=== PATIENT | male | born 2000 | race Caucasian/White ===

== ENCOUNTER 2020-10-21 18:40 | Emergency (ER) | payer BC ==
[2020-10-21] MEDS ORDERED: Dexamethasone 4 MG/ML SDV IM ONE (20:28)
[2020-10-21] MEDS ORDERED: Orphenadrine 60 MG/2 ML Inj IM ONE (20:29)
[2020-10-21] MEDS ORDERED: Dexamethasone 2 MG Tab PO ONE ×2 (20:29→22:34)
[2020-10-21] MEDS ORDERED: Ketorolac 30 MG/ML SDV IM ONE (20:30)
[2020-10-21] MEDS ORDERED: Take Home: Cyclobenzaprine 10 MG Tab, 4 Tab Pack PO ONE ×2 (20:30→22:35)
[2020-10-21] MEDS ORDERED: Take Home: Ketorolac 10 MG Tab, 4 Tab Pack PO ONE ×2 (20:30→22:35)
--- NOTE | 2020-10-21 20:32 | EDM.PDOC ---
ED HPI GENERAL MEDICAL PROBLEM - General Chief Complaint: Back Pain or Injury Stated Complaint: BACK SPASMS Time Seen by Provider: 10/21/20 20:20 Source of Information: Reports: Patient, RN, RN Notes Reviewed History Limitations: Reports: No Limitations - History of Present Illness INITIAL COMMENTS - FREE TEXT/NARRATIVE: Patient is a 19-year-old male who presents to ER with complaint of low back pain which he rates a 8-9/10. 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 He states the pain is progressively gotten worse, complains of tingling to the anterior quads of the thighs bilaterally, denies any numbness. Patient denies any saddle anesthesia, incontinence of bowel or bladder. Patient denies any shooting pain down the legs, states the pain is fairly localized in the low back. Onset: Today, Sudden Duration: Constant Location: Reports: Back Quality: Reports: Sharp Severity: Severe Improves with: Reports: None Treatments PARTS SPECIALIST: Reports: Cold Therapy Lower Back Pain Score (Numeric/FACES): 10 ED ROS GENERAL - Review of Systems Review Of Systems: Comprehensive ROS is negative, except as noted in HPI. ED EXAM,LOWER BACK PAIN/INJURY - Physical Exam Exam: See Below Exam Limited By: No Limitations General Appearance: Alert, WD/WN, Moderate Distress Eye Exam: Bilateral Eye: EOMI, Normal Inspection Ears: Normal External Exam, Hearing Grossly Normal Nose: Normal Inspection Throat/Mouth: Normal Inspection, Normal Voice, No Airway Compromise Head: Atraumatic, Normocephalic Neck: Normal Inspection, Supple, Non-Tender, Full Range of Motion Respiratory/Chest: No Respiratory Distress, Lungs Clear, Normal Breath Sounds, No Accessory Muscle Use, Chest Non-Tender Cardiovascular: Normal Peripheral Pulses, Regular Rate, Rhythm, No Edema, No Gallop, No JVD, No Murmur, No Rub GI/Abdominal: Normal Bowel Sounds, Soft, Non-Tender, No Organomegaly, No Distention, No Abnormal Bruit, No Mass (Male) Exam: Deferred Rectal (Males) Exam: Deferred Back Exam: Normal Inspection, Decreased Range of Motion, Muscle Spasm, Paraspinal Tenderness, Vertebral Tenderness Extremities: Normal Inspection, Normal Range of Motion, Non-Tender, No Pedal Edema, Normal Capillary Refill Neurological: Alert, Normal Mood/Affect, Normal Dorsiflexion, CN II-XII Intact, Normal Plantar Flexion, Normal Gait, Normal Reflexes, No Motor/Sensory Deficits, Oriented x 3 Psychiatric: Normal Affect, Normal Mood Skin Exam: Warm, Dry, Intact, Normal Color, No Rash Lymphatic: No Adenopathy Course - Vital Signs Last Recorded V/S: Last Vital Signs Temp 97.6 F 10/21/20 19:55 Pulse 89 10/21/20 19:55 Resp 18 10/21/20 19:55 BP 140/60 10/21/20 19:55 Pulse Ox 99 10/21/20 19:55 - Orders/Labs/Meds Orders: Active Orders 24 hr Category Date Time Status Lumbar Spine 2 or 3V [CR] Stat Exams 10/21/20 20:32 Taken Cyclobenzaprine [Take Home: Cyclobenzaprine 10 MG, 4 Med 10/21/20 22:35 Once Tab Pack] 1 packet PO ONETIME ONE Ketorolac [Take Home: Ketorolac 10 MG, 4 Tab Pack] Med 10/21/20 22:35 Once 1 packet PO ONETIME ONE dexAMETHasone Med 10/21/20 22:34 Once 4 mg PO ONETIME ONE Medication Orders Cyclobenzaprine HCl (Take Home: Cyclobenzaprine 10 Mg Tab, 4 Tab Pack) 1 packet PO ONETIME ONE Stop: 10/21/20 22:36 Dexamethasone (Dexamethasone 2 Mg Tab) 4 mg PO ONETIME ONE Stop: 10/21/20 22:35 Ketorolac Tromethamine (Take Home: Ketorolac 10 Mg Tab, 4 Tab Pack) 1 packet PO ONETIME ONE Stop: 10/21/20 22:36 Meds: Medications Generic Name Dose Route Start Last Admin Trade Name Freq PRN Reason Stop Dose Admin Cyclobenzaprine HCl 1 packet 10/21/20 22:35 Take Home: Cyclobenzaprine 10 Mg Tab, 4 Tab Pack PO 10/21/20 22:36 ONETIME ONE Dexamethasone 4 mg 10/21/20 22:34 Dexamethasone 2 Mg Tab PO 10/21/20 22:35 ONETIME ONE Ketorolac Tromethamine 1 packet 10/21/20 22:35 Take Home: Ketorolac 10 Mg Tab, 4 Tab Pack PO 10/21/20 22:36 ONETIME ONE Discontinued Medications Generic Name Dose Route Start Last Admin Trade Name Freq PRN Reason Stop Dose Admin Cyclobenzaprine HCl 1 packet 10/21/20 20:30 Take Home: Cyclobenzaprine 10 Mg Tab, 4 Tab Pack PO 10/21/20 20:31 ONETIME ONE Dexamethasone 8 mg 10/21/20 20:28 10/21/20 20:49 Dexamethasone 4 Mg/Ml Sdv IM 10/21/20 20:29 8 mg ONETIME ONE Administration Dexamethasone 4 mg 10/21/20 20:29 Dexamethasone 2 Mg Tab PO 10/21/20 20:30 ONETIME ONE Dexamethasone Confirm 10/21/20 21:00 Dexamethasone 4 Mg/Ml Sdv Administered 10/21/20 21:01 Dose 4 mg .ROUTE .STK-MED ONE Ketorolac Tromethamine 30 mg 10/21/20 20:30 10/21/20 20:52 Ketorolac 30 Mg/Ml Sdv IM 10/21/20 20:31 30 mg ONETIME ONE Administration Ketorolac Tromethamine 1 packet 10/21/20 20:30 Take Home: Ketorolac 10 Mg Tab, 4 Tab Pack PO 10/21/20 20:31 ONETIME ONE Orphenadrine Citrate 60 mg 10/21/20 20:29 10/21/20 20:47 Orphenadrine 60 Mg/2 Ml Inj IM 10/21/20 20:30 60 mg ONETIME ONE Administration - Radiology Interpretation Free Text/Narrative:: Lumbar xray: No acute findings See rad report Departure - Departure Time of Disposition: 22:16 Disposition: Home, Self-Care 01 Condition: Good Clinical Impression: Lumbar radiculopathy, acute Sciatica Qualifiers: Laterality: bilateral Qualified Code(s): M54.31 - Sciatica, right side - Discharge Information *PRESCRIPTION DRUG MONITORING PROGRAM REVIEWED*: No *COPY OF PRESCRIPTION DRUG MONITORING REPORT IN PATIENT WILLY: No Instructions: Radicular Pain, Back Injury Prevention, [id number], Sciatica, E asy-to-Read, Muscle Strain, [id number] Referrals: PCP,None [Primary Care Provider] - Forms: ED Department Discharge Additional Instructions: Alternate heat and ice Rest Use Flexeril 10 mg every 8 hours as needed for muscle spasm, do not drive while taking, do not drink alcohol while taking this medication Use ketorolac every 6-8 hours as directed for pain Follow-up with your primary care provider if no improvement Dexamethasone 2 mg twice daily for 4 more days Sepsis Event Note (ED) - Evaluation Sepsis Screening Result: No Definite Risk - Focused Exam Vital Signs: Vital Signs Temp Pulse Resp BP Pulse Ox 10/21/20 19:55 97.6 F 89 18 140/60 99 - My Orders Last 24 Hours: My Active Orders 10/21/20 20:32 Lumbar Spine 2 or 3V [CR] Stat 10/21/20 22:34 dexAMETHasone 4 mg PO ONETIME ONE 10/21/20 22:35 Cyclobenzaprine [Take Home: Cyclobenzaprine 10 MG, 4 Tab Pack] 1 packet PO ONETIME ONE Ketorolac [Take Home: Ketorolac 10 MG, 4 Tab Pack] 1 packet PO ONETIME ONE - Assessment/Plan Last 24 Hours: My Active Orders 10/21/20 20:32 Lumbar Spine 2 or 3V [CR] Stat 10/21/20 22:34 dexAMETHasone 4 mg PO ONETIME ONE 10/21/20 22:35 Cyclobenzaprine [Take Home: Cyclobenzaprine 10 MG, 4 Tab Pack] 1 packet PO ONETIME ONE Ketorolac [Take Home: Ketorolac 10 MG, 4 Tab Pack] 1 packet PO ONETIME ONE
[2020-10-21] MEDS ORDERED: Dexamethasone 4 MG/ML SDV ONE (21:00)
--- NOTE | 2020-10-22 09:46 | CR ---
[id number] RAD/RAD Lumbar Spine 2-3V EXAM: AP AND LATERAL LUMBAR SPINE. INDICATION: Pain. COMPARISON: No previous similar exam is available for comparison. FINDINGS: No fracture or subluxation is seen. There is preservation of height of disc spaces and vertebrae. The pedicles are intact. IMPRESSION: No fracture or subluxation. Mian Juárez DO 10/22/20 0944 Thank you for allowing us to participate in the care of your patient.
== END 2020-10-21 22:45 | disposition home or self-care (01) ==
LOC: VM.ED 18:40
DX: M54.32 Sciatica, left side (principal); M54.31 Sciatica, right side; M54.16 Radiculopathy, lumbar region
CPT/HCPCS: 72100; 96372; 99283; A9270-GY; J1100; J1885; J2360; J8540